=== PATIENT | male | born 1955 | race Caucasian/White ===

== ENCOUNTER 2023-12-07 08:38 | Emergency (ER) | payer MEDICARE, SELFPAY ==
[2023-12-07 08:40] VITALS: BP 146/88
--- NOTE | 2023-12-07 08:52 | ED.GENMED ---
History of Present Illness
General
Chief Complaint: Urinary Symptoms
Time Seen by Provider: 12/07/23 08:52
Travel History
Have you had any contact with someone who has COVID-19?: No
Do you have any symptoms of coronavirus? Fever > 100 degrees, chills, cough, shortness of breath, sore throat, loss of taste or smell, muscle aches, or headache?: No
History of Present Illness
History of Present Illness:
HPI: The patient presents with painless hematuria over the past 24 hours. He has no flank pain. He is on aspirin. He last had a coronary stent placed 2 years ago and no longer takes Brilinta. He has had no urologic issues in the past. However,
the patient states he has had a inguinal hernia for the past 12 years but did not see a general surgeon. He was concerned that this may be contributing to the hematuria.
EXAM:
GENERAL: Well appearing in no distress
HEENT: Moist oral mucosa
CARDIOVASCULAR: No murmurs, normal heart rate and rhythm, No chest wall tenderness
PULMONARY: No respiratory distress, breath sounds are clear and equal
ABDOMEN: Soft with no peritoneal signs, no tenderness, no CVA tenderness, there is a soft right inguinal hernia extending into the right hemiscrotum, no blood noted at the meatus
NEUROLOGIC: Excellent strength all extremities, no coordination deficits
PSYCHIATRIC: Appropriate mental status, normal insight and judgement
EXTREMITIES: Nontender, no edema, moves all extremities equally
SKIN: No rash, no lesions
ED COURSE:
9:30 AM: I initially evaluated patient
NUMBER AND COMPLEXITY OF PROBLEMS ADDRESSED AT THE ENCOUNTER
� Chronic conditions affecting care: On aspirin, no longer on Brilinta for CAD
� Acute Exacerbation and/or Progression of Chronic Illness: This is an acute problem
� Differential Diagnosis includes: Hemorrhagic cystitis, UTI, platelet dysfunction
AMOUNT AND/OR COMPLEXITY OF DATA TO BE REVIEWED AND ANALYZED
� I performed an independent evaluation of and my interpretation is:
EKG:
CT:
X-rays:
Laboratory Studies: White count normal, hemoglobin normal at 13.6, platelet count normal, chemistries relatively unremarkable except glucose is 145, there is no clear evidence for urinary tract infection.
Other: Ultrasound of the kidneys is unremarkable
� Review of other/old records: Records show the patient had an PA in 2020
� Clinical information was obtained by an independent historian: I spoke to the daughter at bedside
� Prescriptions/Medications Considered but not given:
� Further testing considered but not performed:
RISK OF COMPLICATIONS AND/OR MORBIDITY OR MORTALITY OF PATIENT MANAGEMENT
� Social determinants of health affecting care: Lives at home
� Discussion with other providers: I discussed with Dr. Aranda renal imaging
� Escalation of care including admission/observation vs risk of discharge considered: Inguinal hernia noted but is soft�I recommend general surgery follow-up. The patient has not had coronary procedure in over 2 years, will hold
aspirin for a couple of days. He is to follow-up with urology.
Past History
Past History
ED Past Medical History: None
ED Past Surgical History: None
Social History
Tobacco: Vaping
Alcohol: Occasional
Drug: None
Phy Exam
Physical Exam
Physical Exam:
See HPI
Course
Orders/Labs/Results
Orders:
Orders
12/07/23 08:53
Bladder Scan- Treatment ONCE
12/07/23 09:30
Urinalysis Reflex To Culture Urgent
Date Specimen was Collected: 12/07/23
Time Specimen was Collected: 09:29
Urine Microscopic Reflex Cult Urgent
Urine Culture Urgent
JUAN Source: U
Specimen Description:
Date Specimen was Collected: 12/07/23
Time Specimen was Collected: 09:29
Comment: Add on
12/07/23 09:47
Basic Metabolic Panel Urgent
Complete Blood Count/With Diff Urgent
12/07/23 11:20
Add On - Microbiology Urgent
Tests Added?: Urine Culture
12/07/23 12:11
US Renal Only W/O Bladder Urgent
Comment:
Reason For Exam: hematuria
Abnormal Lab Results
12/07/23 12/07/23
09:30 09:47
RBC 4.27 L 10^6/uL
(4.70-6.10)
Hct 38.8 L %
(39.0-52.0)
MCH 31.9 H pg
(27.0-31.0)
Abs Immat Gran (auto) 0.1 H 10^3/uL
(0-0.05)
Absolute Lymphs (auto) 0.8 L 10^3/uL
(1.2-3.4)
Immature Gran % 0.8 H %
(0-0.5)
Neutrophils % 80.8 H %
(42.2-75.2)
Lymphocytes % 12.3 L %
(20.5-51.1)
Glucose 145 H mg/dl
(70-99)
Ur Occult Blood Reflex 4+ A
(Negative)
Urine RBC >100 A /HPF
(0-2)
Urine Glucose Trace A
(Negative)
Urine Albumin (Reflex) 3+ A
(Neg - Trace)
12/07/23 09:47
12/07/23 09:47
Vital Signs
Initial and Last Documented VS:
Initial Vital Signs
Temp Pulse Resp BP Pulse Ox
98.1 F 77 18 146/88 96
12/07/23 08:40 12/07/23 08:40 12/07/23 08:40 12/07/23 08:40 12/07/23 08:40
Last Documented Vital Signs
Temp Pulse Resp BP Pulse Ox
98.1 F 77 18 146/88 96
12/07/23 08:40 12/07/23 08:40 12/07/23 08:40 12/07/23 08:40 12/07/23 08:40
*Critical Care Note
Total Time (30-74mins, 75-104mins- exclusive of procedures): Not Applicable
ED Attending Note
-
Portions of this chart may have been created with voice recognition software.� Occasional wrong word or��sound alike� substitutions may have occurred due to the inherent limitations of voice recognition software.
Discharge Plan
Departure
Prescriptions:
No Action
atorvastatin 40 MG tablet
40 mg PO QPM Qty: 30 5RF
metoprolol succinate 25 MG tablet extended release 24 hr
25 mg PO DAILY Qty: 30 3RF
aspirin [Adult Low Dose Aspirin] 81 MG tablet,delayed release (DR/EC)
81 mg PO DAILY Qty: 30 0RF
Referrals:
Peng Duong MD [Family Provider] -
Interventions
Interventions:
*General Assessment Last Done: 12/07/23 09:28
*ED COVID-19 Vaccine History Last Done: 12/07/23 08:44
[2023-12-07 09:45] LABS: Urine Albumin 3+ (Neg - Trace); Urine Bilirubin Negative (Negative); Urine Character Bloody (Clear); Urine Color Red; Urine Glucose Trace (Negative); Urine Ketone Negative (Negative); Urine Leukocyte Negative (Negative); Urine Nitrite Negative (Negative); Urine Occult Blood 4+ (Negative); Urine Specific Gravity 1.015 (<1.030); Urine Urobilinogen Negative (Neg - 1+); Urine pH 6.5 (5.0-9.0)
[2023-12-07 09:59] LABS: Urine Red Blood Cell >100 /HPF (0-2)
[2023-12-07 09:59] LABS: % Basophils 0.5 % (0-2); % Eosinophils 0.5 % (0-6); % Immature Granulocytes 0.8 % (0-0.5); % Lymphocytes 12.3 % (20.5-51.1); % Monocytes 5.1 % (1.7-9.3); % Neutrophils 80.8 % (42.2-75.2); Absolute Immature Granulocytes 0.1 10^3/uL (0-0.05); Absolute Lymphocytes 0.8 10^3/uL (1.2-3.4); Absolute Monocytes 0.3 10^3/uL (0.1-0.6); Absolute Neutrophils 4.9 10^3/uL (1.4-6.5); Hematocrit 38.8 % (39.0-52.0); Hemoglobin 13.6 g/dL (13.0-18.0); Mean Corp Hgb Conc. 35.1 g/dL (33.0-37.0); Mean Corpuscular Hgb 31.9 pg (27.0-31.0); Mean Corpuscular Volume 90.9 fL (80.0-94.0); Mean Platelet Volume 8.7 fL (7.4-10.4); Nucleated Red Blood Cells % 0 % (-); Platelet Count 173 10^3/uL (130-400); Red Blood Cell Count 4.27 10^6/uL (4.70-6.10); Red Cell Dist. Width 13.2 % (11.5-14.5); White Blood Cell Count 6.1 10^3/uL (4.8-10.8)
[2023-12-07 10:11] LABS: Blood Urea Nitrogen 14 mg/dl (9-20); Calcium 9.1 mg/dl (8.4-10.2); Carbon Dioxide 25 mmol/L (22-30); Chloride 102 mmol/L (98-107); Glucose 145 mg/dl (70-99); Potassium 3.8 mmol/L (3.5-5.1); Sodium 137 mmol/L (135-145); eGFR > 60.00
[2023-12-07 13:38] VITALS: BP 160/90
== END 2023-12-07 13:35 | disposition home or self-care (01) ==
LOC: EMR 08:38
PROVIDERS: EMERGENCY PHYSICIAN Emergency Medicine; FAMILY PHYSICIAN Family Medicine
DX: R31.9 Hematuria, unspecified (principal); F17.290 Nicotine dependence, other tobacco product, uncomplicated
CPT/HCPCS: 99284; 51798; 76775; 80048; 81003; 81015; 85025; 87086